=== PATIENT | female | born 1950 | race Caucasian/White ===

== ENCOUNTER 2018-12-15 17:02 | Inpatient (IN) | payer MEDICARE, BC ==
[~2018-12-15] VITALS: Ht 157.5 cm; Wt 92.5 kg
--- NOTE | 2018-12-15 17:07 | NUR ---
BIBRA FOR L ANKLE PAIN, "FELL OFF 2 STEPS OF STAIRS" -KO, NOTED W REDNESS AND SWELLING. TO ER BED 1, STABILIZED L ANKLE, HOOKED TO MONITOR, DR MCLEAN AT BEDSIDE FOR EVAL.
[2018-12-15] MEDS ORDERED: LEVO50TA8 PO (17:16)
[2018-12-15] MEDS ORDERED: VALS80TA31 PO (17:16)
[2018-12-15] MEDS ORDERED: ATOR10TA PO (17:16)
[2018-12-15] MEDS ORDERED: MORPHINE SULFATE INJ 4 MG/ML DISP.SYRIN ONE (17:27)
[2018-12-15] MEDS ORDERED: ONDANSETRON HCL/PF 4 MG/2 ML VIAL ONE (17:27)
[2018-12-15] MEDS ORDERED: ONDANSETRON HCL/PF - ER 4 MG/2 ML VIAL IV ONE (17:30)
[2018-12-15] MEDS ORDERED: MORPHINE SULFATE INJ 2 MG/ML DISP.SYRIN IV ONE (17:30)
[2018-12-15] MEDS ORDERED: FENTANYL PF 100MCG/2ML AMPUL ONE (18:12)
[2018-12-15] MEDS ORDERED: ETOMIDATE 2 MG/ML VIAL ONE (18:12)
--- NOTE | 2018-12-15 18:12 | NUR ---
CALLED [facility] [phone] AFTERHOURS [phone] TANO GARCIA.
[2018-12-15] MEDS ORDERED: ETOMIDATE 2 MG/ML VIAL IV ONE (18:30)
[2018-12-15] MEDS ORDERED: FENTANYL PF 100MCG/2ML AMPUL IV ONE (18:30)
[2018-12-15 18:31] LABS: BASOPHILS % (AUTO) 0.5 % (0.0-2.0); EOSINOPHILS % (AUTO) 1.1 % (0.0-6.0); HEMATOCRIT 44 % (33-45); HEMOGLOBIN 14.8 g/dL (11.5-14.8); LYMPHOCYTES # (AUTO) 1.7 /CMM (0.8-4.8); LYMPHOCYTES % (AUTO) 17.2 % (20.0-44.0); MEAN CORPUSCULAR HGB CONC 34 g/dl (31.0-36.0); MEAN CORPUSCULAR VOLUME 92 fL (82-100); MONOCYTES % (AUTO) 9.7 % (2.0-12.0); NEUTROPHILS # (AUTO) 7.1 /CMM (1.8-8.9); NEUTROPHILS % (AUTO) 71.5 % (43.0-81.0); PLATELET COUNT (AUTO) 219 /CMM (150-450); RED BLOOD CELL COUNT(AUTO) 4.76 MIL/uL (4.0-5.2); WHITE BLOOD COUNT (AUTO) 9.9 K/uL (4.3-11.0)
--- NOTE | 2018-12-15 18:32 | NUR ---
PATIENT SIGNED CONSENT FOR LEFT ANKLE REDUCTION WITH PROCEDURAL SEDATION
[2018-12-15 18:39] LABS: CALCIUM, SERUM 9.2 mg/dL (8.5-10.1); CREATININE 0.8 mg/dL (0.6-1.3)
--- NOTE | 2018-12-15 18:55 | NUR ---
LEFT ANKLE REDUCTION LED BY DR MCLEAN. RT, TECH AND RN AT BEDSIDE. PATIENT IN DROP TESTER, STABLE VITALS.
--- NOTE | 2018-12-15 19:10 | NUR ---
CALLED [facility] ITS DERSUSUIAN
[2018-12-15] MEDS ORDERED: MAG HYDROX/AL HYDROX/SIMETH 30 ML UDC PO PRN (19:30)
[2018-12-15] MEDS ORDERED: MAGNESIUM HYDROXIDE 30 ML UDC PO PRN (19:30)
[2018-12-15] MEDS ORDERED: ACETAMINOPHEN 325 MG TABLET PO PRN (19:30)
[2018-12-15] MEDS ORDERED: Z GUARD REMEDY 2 OZ OINT TP PRN (19:30)
[2018-12-15] MEDS ORDERED: ZOLPIDEM TARTRATE 5 MG TABLET PO PRN (19:30)
[2018-12-15] MEDS ORDERED: HYDROCODONE/APAP 5/325MG 1 EACH TABLET PO PRN (19:30)
[2018-12-15] MEDS ORDERED: ONDANSETRON HCL/PF 4 MG/2 ML VIAL IVP PRN (19:30)
--- NOTE | 2018-12-15 19:30 | NUR ---
REPORT GIVEN TO KISHOR HUFFMAN FOR ADARSH
--- NOTE | 2018-12-15 19:56 | NUR ---
RECIEVED [facility] 311-1
[2018-12-15 20:00] VITALS: BP 136/73
--- NOTE | 2018-12-15 20:10 | NUR ---
REPORT GIVEN TO ARMIDA ANDERSON FOR ADARSH. BED CHANGED TO 315-1.
[2018-12-15 20:35] VITALS: BP 142/69
--- NOTE | 2018-12-15 20:35 | NUR ---
RN OPEN NOTES RECEIVED PATIENT FROM ER VIA [facility] WITH FAMILY AT BEDSIDE. A/OX4. NO SIGNS OF DISTRESS OR DISCOMFORT. BREATHING EVEN AND UNLABORED. IV ACCESS IN L HAND AND LFA, PATENT AND INTACT, NO SIGNS OF REDNESS OR INFILTRATION. DRESSINGS ON BLE C/D/I. ORIENTED PATIENT TO UNIT AND ROOM. BED IN LOW LOCKED POSITION WITH SIDE RAILS X2 .CALL LIGHT WITHIN REACH. WILL CONTINUE TO MONITOR.
[2018-12-15] MEDS: IV 1/2NS 1000 ML 1,000 ML IV PRN (21:28)
[2018-12-15] MEDS: MORPHINE SULFATE INJ 2 MG/ML DISP.SYRIN IV PRN (21:37)
[2018-12-16] MEDS: MORPHINE SULFATE INJ 2 MG/ML DISP.SYRIN IV PRN ×2 (04:36→11:50)
[2018-12-16 06:20] LABS: BASOPHILS % (AUTO) 0.3 % (0.0-2.0); EOSINOPHILS % (AUTO) 1.6 % (0.0-6.0); HEMATOCRIT 42 % (33-45); LYMPHOCYTES # (AUTO) 1.6 /CMM (0.8-4.8); LYMPHOCYTES % (AUTO) 21.4 % (20.0-44.0); MEAN CORPUSCULAR HGB CONC 34 g/dl (31.0-36.0); MEAN CORPUSCULAR VOLUME 92 fL (82-100); MONOCYTES # (AUTO) 1.1 /CMM (0.1-1.30); MONOCYTES % (AUTO) 14.7 % (2.0-12.0); NEUTROPHILS # (AUTO) 4.6 /CMM (1.8-8.9); PLATELET COUNT (AUTO) 180 /CMM (150-450); RED BLOOD CELL COUNT(AUTO) 4.54 MIL/uL (4.0-5.2); WHITE BLOOD COUNT (AUTO) 7.4 K/uL (4.3-11.0)
[2018-12-16 06:38] LABS: ALBUMIN 3.3 g/dL (3.4-5.0); BILIRUBIN,TOTAL 0.3 mg/dL (0.2-1.0); CALCIUM, SERUM 8.6 mg/dL (8.5-10.1); CREATININE 0.6 mg/dL (0.6-1.3); MAGNESIUM 1.8 mg/dL (1.8-2.4); PHOSPHORUS 3.4 mg/dL (2.5-4.9); POTASSIUM 3.5 mmol/L (3.5-5.1); TOTAL PROTEIN, SERUM 6.4 g/dL (6.4-8.2)
--- NOTE | 2018-12-16 07:21 | NUR ---
RN CLOSING NOTES PATIENT AWAKE IN BED WITH FAMILY AT BEDSIDE. A/OX4. NO SIGNS OF DISTRESS OR DISCOMFORT. BREATHING EVEN AND UNLABORED. IV ACCESS IN L HAND AND LFA WITH 1/2 NS INFUSING, PATENT AND INTACT, NO SIGNS OF REDNESS OR INFILTRATION. ALL NEEDS MET. NO SIGNIFICANT CHANGES THROUGH THE NIGHT. PATIENT GIVEN DUE PAIN MEDICATIONS PRN. DRESSINGS ON BLE C/D/I. BED IN LOW LOCKED POSITION WITH SIDE RAILS X2 .CALL LIGHT WITHIN REACH. ENDORSED TO AM SHIFT FOR ADARSH.
--- NOTE | 2018-12-16 07:30 | NUR ---
m/s bias binding cutter: initial assessment received pt in bed awake, a/ox4. on bedrest. ble with splint with dressing due to left ankle fx, and right foot metatarsal fx. voiced no discomfort. instructed to call for assistance. will continue to monitor.
[2018-12-16 08:00] VITALS: BP 146/68
--- NOTE | 2018-12-16 08:40 | NUR ---
m/s dance historian: cardio consult seen and examined by dr. pascual and pt rhoda for surgery. family at bedside.
--- NOTE | 2018-12-16 09:15 | NUR ---
m/s after school program assistant: ortho consult daughter wants her mother out and to go to [facility]. per daughter, her dad is already there and there's an accepting orthopedic and also has a bed. informed her that it's going to be a long process if they want to transfer out and case management will have to coordinate the transfer. carmen coles) here and assessed pt and also spoke to daughter and pt's . pt and family verbalized understanding of procedure and recovery process. carmen coles) spent 30 minutes in room. family will let nurse once they have decided if they want the procedure here or outside. carmen leon aware. will continue to monitor.
--- NOTE | 2018-12-16 09:45 | NUR ---
m/s parole or probation officer: notes and daughter still undecided if they want to go against medical advice. pt still on standby, kept pt npo, most likely will have surgery this afternoon with dr. li. will continue to monitor.
--- NOTE | 2018-12-16 10:15 | NUR ---
m/s professional skater: notes daughter spoke to me and informed me that she has spoken to hector (case management) and will be working on transferring her out instead of going against medical advice. f/u made to hector and will let dr. silva know for discharge order as stated. carmen leon (ortho) made aware and fine for transfer out. instructed to call for assistance. will continue to monitor.
--- NOTE | 2018-12-16 10:45 | NUR ---
m/s well reactivator operator: ortho f/u dr. li at bedside and spoke to family and pt. pending transfer to [facility]. kept pt npo and both parties (pt and family) agreed in case pt goes to surgery there.
--- NOTE | 2018-12-16 11:50 | NUR ---
m/s gusset folder: notes c/o 10/10 left lower extremity pain. medicated with morphine 1mg ivp by rn. family remains at bedside. pt remains npo. instructed to call for assistance.
[2018-12-16] MEDS: IV 1/2NS 1000 ML 1,000 ML IV PRN (12:06)
--- NOTE | 2018-12-16 12:20 | NUR ---
m/s cementer machine: notes pt resting comfortable in bed. remains npo. ble still with splint on with dressing. pt still with good sensation to ble. pt remains on bedrest. pending transfer to another acute hospital. will continue to monitor.
--- NOTE | 2018-12-16 14:00 | NUR ---
m/s manager print: notes f/u made to case management and informed me that the ambulance will be here at 1430. pt and family made aware.
--- NOTE | 2018-12-16 14:10 | NUR ---
m/s ranch hand supervisor: md visit seen and examined by dr. silva and aware pt for d'c to [facility]. pt c/o nausea. zofran 4mg ivp by rn. receive verbal order to write the discharge order. order read back and carried out. Addendum: 12/16/18 at 1516 by ROE FAJARDO LVN also received order to give 500ml ns bolus before she goes. order read back and carried out.
[2018-12-16] MEDS ORDERED: IV NS 0.9% 500 ML IV ONE (14:15)
--- NOTE | 2018-12-16 14:20 | NUR ---
m/s screw machine tool setter: notes report given to natalia (rn) at [facility] for continuity of care.
--- NOTE | 2018-12-16 14:30 | NUR ---
m/s customer consultant: notes ambulance here and report given to one of the crew. discharge instructions given to daughter and all d'c papers copy provided. pt and family verbalized understanding of d'c instructions. iv fluids disconnected.
--- NOTE | 2018-12-16 14:35 | NUR ---
m/s plant engineer: notes iv ns bolus of 500 ml given as ordered.
--- NOTE | 2018-12-16 15:00 | NUR ---
m/s research quality assurance analyst: discharged discharged to another acute hospital in stable condition with iv to left forearm and left hand via gurney accompanied by 2 crew. all belongings returned to pt.
== END 2018-12-16 14:50 | disposition short-term general hospital (02) | DRG 563 ==
LOC: ER 17:09 → MED 20:14
PROVIDERS: ADMIT Family Medicine; ATTEND Family Medicine
DX: S82.842A Displaced bimalleolar fracture of left lower leg, initial encounter for closed fracture (principal); S82.832A Other fracture of upper and lower end of left fibula, initial encounter for closed fracture; S92.192A Other fracture of left talus, initial encounter for closed fracture; Y92.9 Unspecified place or not applicable; I10 Essential (primary) hypertension; E66.9 Obesity, unspecified; E78.5 Hyperlipidemia, unspecified; E03.9 Hypothyroidism, unspecified; Z68.37 Body mass index [BMI] 37.0-37.9, adult; S92.331A Displaced fracture of third metatarsal bone, right foot, initial encounter for closed fracture; S92.351A Displaced fracture of fifth metatarsal bone, right foot, initial encounter for closed fracture; W10.9XXA Fall (on) (from) unspecified stairs and steps, initial encounter; F12.90 Cannabis use, unspecified, uncomplicated; Z98.890 Other specified postprocedural states; Z79.899 Other long term (current) drug therapy; R00.1 Bradycardia, unspecified
CPT/HCPCS: 36415; 71045-TC; 73600-TC; 73610-TC; 73630-TC; 80048-TC; 80053-TC; 80061-TC; 83735-TC; 84100-TC; 84484-TC; 85025-TC; 85730-TC; 87081-TC; 93307-TC; G0378; G0500; J2270; J2405; J3010; J3490; J7030